=== PATIENT | female | born 1995 | race Hispanic/Latino ===

== ENCOUNTER 2020-05-26 17:00 | Emergency (ER) | payer OTHER | END 2020-05-26 18:35 | disposition home or self-care (01) | LOC: M ED 17:00 | DX: F41.9 Anxiety disorder, unspecified (principal); F20.9 Schizophrenia, unspecified; J45.909 Unspecified asthma, uncomplicated; Z79.899 Other long term (current) drug therapy ==

== ENCOUNTER 2021-01-01 15:50 | Emergency (ER) | payer OTHER ==
[~2021-01-01] VITALS: Ht 165.1 cm; Wt 90.9 kg
[2021-01-01] MEDS ORDERED: BANO25CA PO (16:20)
[2021-01-01] MEDS ORDERED: ACET160L16 PO (16:20)
[2021-01-01] MEDS ORDERED: predniSONE 20 MG TAB PO ONE (18:10)
[2021-01-01] MEDS ORDERED: ALBUTEROL 90 MCG/ACT 8GM HFA INHALER INH ONE (18:10)
[2021-01-01] MEDS ORDERED: VENTAER INH (18:39)
[2021-01-01] MEDS ORDERED: PRED20TA PO (18:39)
[2021-01-01 18:47] VITALS: BP 123/68
== END 2021-01-01 18:48 | disposition home or self-care (01) ==
LOC: M ED 15:50
DX: L50.0 Allergic urticaria (principal); J98.01 Acute bronchospasm; Z79.899 Other long term (current) drug therapy

== ENCOUNTER 2021-09-05 07:29 | Emergency (ER) | payer OTHER ==
[~2021-09-05] VITALS: Ht 165.1 cm; Wt 90.9 kg
[~2021-09-05 07:29] MED LIST: ACET160L16 PO; DIPH-319 PO; PRED20TA PO; VENTAER INH
[2021-09-05 07:30] VITALS: BP 141/84
[2021-09-05] MEDS ORDERED: HYDR-4570 PO (07:36)
[2021-09-05] MEDS ORDERED: SERT50TA29 PO (07:36)
--- NOTE | 2021-09-05 08:36 | REP ---
INDICATION: large tender swollen mass R axilla. COMPARISON: None. TECHNIQUE: Grayscale imaging of the axilla. FINDINGS: Sonographic evaluation of the right axilla in her tender palpable area is performed. There is no discrete mass, architectural distortion, cyst or skin thickening. No evidence for abscess or other fluid collection. IMPRESSION: 1. No sonographically visible discrete mass, cyst, adenopathy, architectural distortion or fluid infiltration/edema evident on these images. <Electronically signed by Glenn Villagomez > 09/05/21 0888
== END 2021-09-05 09:15 | disposition home or self-care (01) ==
LOC: M ED 07:29
DX: R22.31 Localized swelling, mass and lump, right upper limb (principal)

== ENCOUNTER → 2021-10-21 | Outpatient (REF) ==
[~2021-10-21] MED LIST changes: +HYDR-4570 PO; +SERT50TA29 PO
== END ==
LOC: M EMP 09:28
PROVIDERS: ATTEND Family Medicine
DX: Z20.822 Contact with and (suspected) exposure to COVID-19 (principal)

== ENCOUNTER → 2021-10-26 | Outpatient (REF) | LOC: M EMP 09:04 | PROVIDERS: ATTEND Family Medicine | DX: Z20.822 Contact with and (suspected) exposure to COVID-19 (principal) ==

== ENCOUNTER → 2021-11-08 | Outpatient (REF) | LOC: M LABSMTC 10:43 | PROVIDERS: ATTEND Family Medicine | DX: Z20.822 Contact with and (suspected) exposure to COVID-19 (principal) ==

== ENCOUNTER 2025-06-15 16:19 | Emergency (ER) | payer OTHER ==
[~2025-06-15] VITALS: Ht 165.1 cm; Wt 87.8 kg
[~2025-06-15 16:19] MED LIST changes: -DIPH-319 PO; +DIPH-429 PO; +HYDR-3364 PO; -HYDR-4570 PO
[2025-06-15 17:08] LABS: BASO # 0.0 10^3/uL (0.0-0.2); BASO % 0.4 % (0.0-1.0); EOS # 0.2 10^3/uL (0.0-0.5); EOS % 2.3 % (0.0-3.0); LYMPH # 2.4 10^3/uL (1.5-5.0); LYMPH % 23.5 % (24.0-44.0); MONO # 0.5 10^3/uL (0.0-0.8); MONO % 4.6 % (2.0-8.0); NEUTROPHILS # 6.9 10^3/uL (1.5-8.5); NEUTROPHILS % 68.8 % (36.0-66.0); PLATELET COUNT, AUTOMATED 221 10^3/uL (150-450)
[2025-06-15 17:44] LABS: CALCIUM LEVEL 8.4 MG/DL (8.5-10.1); CARBON DIOXIDE LEVEL 24 MMOL/L (20-31); CHLORIDE LEVEL 110 MMOL/L (98-107); CREATININE FOR GFR 0.69 MG/DL (0.55-1.30); GLOMERULAR FILTRATION RATE > 90.0 (>60); POTASSIUM SERUM 4.2 MMOL/L (3.5-5.1); SODIUM LEVEL 142 MMOL/L (136-145)
[2025-06-15 18:01] LABS: HCG, SERUM QUANTITATIVE 2532.4 MIU/ML (<4.2)
[2025-06-15 19:26] LABS: ALT/SGPT 24 U/L (7.0-40); AST/SGOT 19 U/L (<34)
[2025-06-15] MEDS: NS (Normal Saline) 0.9% 1,000 ML IV ONE (19:47)
[2025-06-15] MEDS: MORPHINE 4 MG/ML 1 ML VIAL IV ONE (19:47)
[2025-06-15 19:49] LABS: KETONE, URINE AUTO RFX NEGATIVE (NEGATIVE); LEUKOCYTE ESTERASE UR AUTO RFX NEGATIVE (NEGATIVE); NITRITE, URINE AUTO RFX NEGATIVE (NEGATIVE); RBC, URINE AUTO RFX 6 /HPF (0-3); SQUAM EPITHELIAL CELL UR AURFX 1 /HPF (0-6); WBC, URINE AUTO RFX 1 /HPF (0-3)
[2025-06-15 21:17] LABS: GC DNA AMPLIFICATION NEGATIVE (NEGATIVE)
[2025-06-15] MEDS ORDERED: miSOPROStol 25 MCG 1/4 TABLET PV ONE (21:30)
[2025-06-15] MEDS ORDERED: PERC5TAB12 PO (21:33)
[2025-06-15] MEDS: OXYCODONE/APAP 5MG/325MG(HOME DOSE PACK) PO ONE (22:51)
[2025-06-15 22:55] VITALS: BP 109/79; TEMP 97.8; O2SAT 99
== END 2025-06-15 22:55 | disposition home or self-care (01) ==
LOC: M ED 16:19
DX: O03.4 Incomplete spontaneous abortion without complication (principal); J45.909 Unspecified asthma, uncomplicated; F12.10 Cannabis abuse, uncomplicated; Z79.51 Long term (current) use of inhaled steroids; Z79.899 Other long term (current) drug therapy
CPT/HCPCS: 76830; 76856; 80048; 80076; 81001; 83690; 84702; 85025; 86850; 86870; 86900; 86901; 87210; 87810; 87850; 93041; 93976; 94760; 96361; 96374; 96375; 99284; S0191